=== PATIENT | male | born 1980 | race Caucasian/White ===

== ENCOUNTER 2019-10-01 09:12 | Emergency (ER) | payer SELFPAY ==
[2019-10-01 09:19] VITALS: BP 128/94; PULSE 80; RESP 16; TEMP 37.3; O2SAT 95; BMI 20.9
--- NOTE | 2019-10-01 09:32 | ED_ITS ---
HPI - General Adult General: Chief complaint: General Medical Stated complaint: FEVER,ACHES, SORE THROAT Time Seen by Provider: 10/01/19 09:14 History of Present Illness: HPI narrative: Patient complains of a fever body aches sore throat for couple days woke up yesterday with the start and he took ibuprofen last night that did help some feeling better but did not take any medicine today. 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 MD complaint: flu Onset (ago): day(s) (2) Radiation: non-radiation Severity: moderate Severity scale (1-10): 5 Associated symptoms: Deny chest pain, dyspnea, headache(s), nausea, rash or vomiting Review of Systems Const: Reports: fever, chills and body aches Eyes: Denies: change in vision or blurry vision ENMT: Denies: throat pain or nasal congestion Card: Denies: chest pain or shortness of breath on exertion Resp: Reports: non-productive cough; Denies: shortness of breath or productive cough GI: Denies: abdominal pain, nausea or vomiting : Denies: difficulty urinating Musc: Denies: extremity pain Skin/Breast: Denies: rash Neuro: Denies: headache Psych: Denies: anxiety or depression Sebastian/Lymph: Denies: easy bruising PFSH ED PFSH: Social History Smoking and tobacco status: current every day smoker Physical Exam Const: COMMON NORMALS: no apparent distress, average body habitus and oriented x3 HENMT: COMMON NORMALS: normocephalic HEAD & SCALP: normal to inspection and normocephalic FACE & SINUS: normal facial exam Eye: COMMON NORMALS: conjunctivae normal GENERAL EYE: normal appearance of both eyes CONJUNCTIVA: Yes conjunctivae normal Neck/C-Spine: COMMON NORMALS: no JVD Chest: COMMONS NORMALS: inspection of chest normal Resp: COMMON NORMALS: normal respiratory effort and clear to auscultation bilaterally AUSCULTATION: clear to auscultation bilaterally Cardio: COMMON NORMALS: no JVD, regular rate and regular rhythm RATE: regular rate RHYTHM: regular rhythm GI: COMMON NORMALS: normal to inspection, nondistended, normoactive bowel sounds Extremity: COMMON NORMALS: normal to inspection and full ROM Neuro: COMMON NORMALS: oriented x3 Course Vital Signs: Vital signs: Vital Signs Temperature 99.1 F 10/01/19 09:19 Pulse Rate 80 10/01/19 09:19 Respiratory Rate 16 10/01/19 09:19 Blood Pressure 128/94 10/01/19 09:19 Pulse Oximetry 95 10/01/19 09:19 Coding Level of Care Code ED [facility] [employer] for [facility] [place]
[2019-10-01 09:48] LABS: Rapid Strep A Test Negative (Negative)
[2019-10-01 09:57] LABS: Influenza A by IFA Negative (Negative); Influenza B by IFA Negative (Negative)
[2019-10-01 10:21] VITALS: BP 112/63; PULSE 70; RESP 16; O2SAT 93
== END 2019-10-01 10:22 | disposition home or self-care (01) ==
PROVIDERS: Emergency Provider Nurse Practitioner Family
DX: R50.9 Fever, unspecified (principal); J02.9 Acute pharyngitis, unspecified; R05 Cough; F17.200 Nicotine dependence, unspecified, uncomplicated
CPT/HCPCS: 87081; 87804; 87880; 99281; 99283